=== PATIENT | male | born 1955 | race Caucasian/White ===

== ENCOUNTER 2022-08-02 05:41 | Day surgery (SDC) | payer MEDICARE, BC ==
[2022-07-26 12:43] LABS: BASOPHILS # (AUTO) 0.1 X10'3 (0-0.2); BASOPHILS % (AUTO) 0.7 % (0-1); EOSINOPHILS # (AUTO) 0.1 X10'3 (0-0.9); EOSINOPHILS % (AUTO) 0.9 % (0-6); LYMPHOCYTES # (AUTO) 1.6 X10'3 (1.1-4.8); LYMPHOCYTES % (AUTO) 20.4 % (21-51); MEAN CORPUSCULAR HEMOGLOBIN 28.2 PG (27.0-31.0); MEAN CORPUSCULAR VOLUME 85.5 FL (78-98); MEAN PLATELET VOLUME 8.8 FL (7.4-10.4); MONOCYTES # (AUTO) 0.9 X10'3 (0-0.9); MONOCYTES % (AUTO) 11.5 % (2-12); NEUTROPHILS # (AUTO) 5.3 X10'3 (1.8-7.7); NEUTROPHILS % (AUTO) 66.5 % (42-75); PRE OP HEMATOCRIT 42.9 % (42.0-52.0); PRE OP HEMOGLOBIN 14.2 g/dL (14.0-17.9); PRE OP PLATELET COUNT 304 X10'3 (140-440); RED BLOOD COUNT 5.02 X10'6 (4.70-6.10); RED CELL DISTRIBUTION WIDTH 14.4 % (11.5-14.5)
[2022-07-26 13:35] LABS: ALBUMIN 3.9 G/DL (3.4-5.0); ALKALINE PHOSPHATASE 93 IU/L (46-116); BLOOD UREA NITROGEN 19 MG/DL (7-18); BUN/CREATININE RATIO 16.8 (5.4-32.0); CALCIUM 9.6 MG/DL (8.5-10.1); CHLORIDE 104 MMOL/L (99-107); CREATININE 1.13 MG/DL (0.60-1.10); PRE OP ALT 17 U/L (30-65); PRE OP AST 17 U/L (10-37); PRE OP BILIRUB, TOTAL 0.4 MG/DL (0.0-1.0); PRE OP GLUCOSE 104 MG/DL (70-104); TOTAL PROTEIN 7.9 G/DL (6.4-8.2); eGFR 65 ML/MIN
[2022-07-26 14:08] LABS: PRE OP ANION GAP 4 (8-16); PRE OP POTASSIUM 4.5 MMOL/L (3.4-5.1); PRE OP SODIUM 138 MMOL/L (135-145)
[2022-08-02] VITALS (13 sets, daily range): BP systolic 94–149; BP diastolic 45–93
[~2022-08-02] VITALS: Ht 182.9 cm; Wt 77.0 kg
[~2022-08-02 05:41] MED LIST: NO HOME MEDS
--- NOTE | 2022-08-02 06:00 | NUR ---
TOTAL JOINT CHARTING: PT COMPLETED 5 DAYS PREOP HIBICLENS SHOWERS. DID NOT WATCH THE VIDEO, HOWEVER DID READ THE BOOKLET. [facility] WNL. STRONG LEFT PEDAL PULSE MARKED. Addendum: 08/02/22 at 0933 by Juana Tay RN Amended: Links added.
[2022-08-02] MEDS ORDERED: magnesium hydroxide 30ml (MOM) UD suspension PO PRN (06:30)
[2022-08-02] MEDS ORDERED: naloxone 0.4 mg/ml inj IV PRN (06:30)
[2022-08-02] MEDS ORDERED: ondansetron/PF 4mg/2ml inj IV PRN ×2 (06:30→08:25)
[2022-08-02] MEDS ORDERED: HYDROmorphone inj. 0.5 MG/0.5 ML DISP.SYRIN IV PRN (06:30)
[2022-08-02] MEDS ORDERED: bisacodyl 10mg suppository rectal RC PRN (06:30)
[2022-08-02] MEDS ORDERED: HYDROcodone/acetaminophen 10/325mg tab PO PRN (06:30)
[2022-08-02] MEDS ORDERED: acetaminophen 325mg tablet PO PRN (06:30)
[2022-08-02] MEDS ORDERED: diphenhydrAMINE 25mg capsule PO PRN ×2 (06:30)
[2022-08-02] MEDS ORDERED: HYDROmorphone 1 mg/ml syringe IV PRN (06:30)
[2022-08-02] MEDS ORDERED: celeCOXIB 100mg capsule PO ONE (06:36)
[2022-08-02] MEDS ORDERED: ceFAZolin inj. 2,000 MG in dextrose 5%-water 100 ML IV ONE (06:36)
[2022-08-02] MEDS ORDERED: famotidine 20mg tablet PO ONE (06:36)
[2022-08-02] MEDS ORDERED: metoclopramide 5 mg/ml inj IV ONE (06:37)
[2022-08-02] MEDS ORDERED: vancomycin 1,500 MG in NS 300ml IV soln IV ONE (06:37)
[2022-08-02] MEDS ORDERED: gabapentin 300mg capsule PO ONE (06:37)
[2022-08-02] MEDS ORDERED: tranexamic acid inj. 1,000 MG in normal saline IV soln 100ML IV ONE (06:37)
[2022-08-02] MEDS ORDERED: ketorolac trometh. 30mg/ml inj. ONE (06:45)
[2022-08-02] MEDS ORDERED: cloNIDine hcl/PF 100mcg/ml inj ONE (06:45)
[2022-08-02] MEDS ORDERED: vancomycin 1,000mg inj ONE (06:45)
[2022-08-02] MEDS ORDERED: ROPIVAcaine 0.5% (5mg/ml) 30ml vial ONE (06:45)
[2022-08-02] MEDS ORDERED: epiNEPHrine 1 mg/ml inj ONE (06:45)
[2022-08-02] MEDS ORDERED: labetalol 20mg/4ml (5mg/ml) syringe IV PRN (08:25)
[2022-08-02] MEDS ORDERED: morphine 4 MG/ML inj SYRINge IV PRN (08:25)
[2022-08-02] MEDS ORDERED: fentaNYL/PF 50MCG/1 ML 2ML syringe IV PRN ×2 (08:25)
[2022-08-02] MEDS ORDERED: ringers solution, lacted 1,000 ML IV SCH (08:25)
[2022-08-02] MEDS ORDERED: morphine 2 MG/ML inj. syringe IV PRN (08:25)
[2022-08-02] MEDS ORDERED: hydrALAZINE 20mg/ml inj. IV PRN (08:25)
[2022-08-02] MEDS ORDERED: fentaNYL/PF 50MCG/1 ML 2ML syringe ONE (08:30)
[2022-08-02] MEDS ORDERED: MIDAZolam 1mg/ml 10ml vial ONE (08:30)
--- NOTE | 2022-08-02 09:14 | NUR ---
PREOP OXYCONTIN NOT ADMINISTERED R/T PT NOT SEEN AND INTERVIEWED BY ANESTHESIA UNTIL JUST BEFORE TAKEN TO O.R.. DR GARCIA NOTIFIED OF NON ADMINISTERED MED.
[2022-08-02] MEDS ORDERED: ROPIVAcaine 0.5% (5mg/ml) 30ml vial IJ ONE (09:37)
[2022-08-02] MEDS ORDERED: cloNIDine hcl/PF 100mcg/ml inj IJ ONE (09:38)
[2022-08-02] MEDS ORDERED: epiNEPHrine 1 mg/ml inj IM ONE (09:40)
[2022-08-02] MEDS ORDERED: ketorolac trometh. 30mg/ml inj. IM ONE (09:41)
--- NOTE | 2022-08-02 10:02 | NUR ---
Received from OR via HOSPITAL BED, accompanied by Anesthesiologist and report given by TENZIN Anesthesiologist. PT WAKING UP. VSS. PT PRESENTS WITH PIV 20G RIGHT AC, LEFT HIP GINO DRESSING C/D/I, KNEE IMMOBILIZER, DISTAL PULSES NOTED. Addendum: 08/02/22 at 1023 by Alexx Neri RN Amended: Links added.
--- NOTE | 2022-08-02 10:52 | NUR ---
PATIENT HAS MET ALL CRITERIA FOR TRANSFER TO THE SURGICAL FLOOR. VSS. DRESSINGS INTACT. BED LOW, CALL LIGHT PRESENT AND 2 RAILS UP. RN PRESENT TO ACCEPT CARE OF PATIENT AND REPORT HAS BEEN CALLED. ALL QUESTIONS ANSWERED TO ACCEPTING RN. Addendum: 08/02/22 at 1104 by Alexx Neri RN Amended: Links added.
[2022-08-02] MEDS: potassium cl 20mEq in 1/2 NS 1,000 ML IV SCH ×2 (12:31→14:46)
[2022-08-02] MEDS ORDERED: tranexamic acid inj. 770 MG in normal saline 100ml IV soln 92.3 ML IV ONE (13:00)
--- NOTE | 2022-08-02 14:41 | NUR ---
Initial assessment time & VS start should be started almost 1 hour later. Clock in room was wrong.
[2022-08-02] MEDS: HYDROcodone/acetaminophen 10/325mg tab PO PRN ×2 (15:07→19:18)
[2022-08-02] MEDS ORDERED: ceFAZolin/D5W- 1GM premix 50 ML IV SCH (16:00)
--- NOTE | 2022-08-02 18:21 | NUR ---
Patient in room ORTHO 4022. I have received report from newton Santos and had the opportunity to ask questions and assume patient care.
--- NOTE | 2022-08-02 19:50 | NUR ---
pt left the floor on wheelchair pushed by a pct to meed his at the hospital entrance. pt left in private vehicle. IV was out and pain med was given before his departure. pt understood the instructions.
[2022-08-02] MEDS ORDERED: vancomycin/NS 1 GM ADD-VANTAGE 250 ML IV SCH (20:00)
[2022-08-02] MEDS ORDERED: ascorbic acid 500mg tablet PO SCH (20:00)
[2022-08-02] MEDS ORDERED: gabapentin 300mg capsule PO SCH (21:00)
[2022-08-02] MEDS ORDERED: sennosides 8.6mg tablet PO SCH (21:00)
[2022-08-03] MEDS ORDERED: ringers solution, lacted 1,000 ML IV SCH (05:00)
[2022-08-03] MEDS ORDERED: acetaminophen 325mg tablet PO ONE (05:30)
[2022-08-03] MEDS ORDERED: oxyCODONE SR 10mg (sust. release) tab -2 tabs (20mg) PO ONE (05:30)
[2022-08-03] MEDS ORDERED: multivitamins, therapeutics tablet PO SCH (08:00)
[2022-08-03] MEDS ORDERED: aspirin 325mg tablet PO SCH (08:30)
[2022-08-03] MEDS ORDERED: celeCOXIB 100mg capsule PO SCH (20:00)
== END 2022-08-02 19:45 | disposition home or self-care (01) ==
LOC: PAS 05:41 → ORTHO 4S 11:18 → PAS 19:45
PROVIDERS: ATTEND Orthopaedic Surgery
DX: M16.12 Unilateral primary osteoarthritis, left hip (principal); F41.9 Anxiety disorder, unspecified; N18.2 Chronic kidney disease, stage 2 (mild); Z72.89 Other problems related to lifestyle; Z79.82 Long term (current) use of aspirin; Z79.899 Other long term (current) drug therapy; Z98.890 Other specified postprocedural states; Z82.49 Family history of ischemic heart disease and other diseases of the circulatory system
CPT/HCPCS: 27130; 36415; 72170; 80053; 82948; 85025; 86885; 86900; 86901; 87081; 93005; 97116; 97161; 97530; C1776; J0171; J0690; J0735; J1885; J2250; J2765; J2795; J3010; J3370; J3480; J3490; J7030; J7040; J7060; J7120; Z7506; Z7508; Z7512; A4615; A7000; G0378